=== PATIENT | female | born 1970 | race Caucasian/White ===

== ENCOUNTER → 2017-10-27 | Emergency (ER) | payer OTHER ==
[~2017-10-27] VITALS: Ht 157.5 cm; Wt 63.5 kg
[~2017-10-27] MED LIST: DULERA 200 MCG/13 GM IH; LEVAQUIN750 MG PO; MEDROLPACK PO; PROVENTIL S1 ML/5 MG IH; PROVENTIL0.5 ML/2.5 IH; PROVENTIL3 ML/2.5 M IH; SINGULAIR10 MG PO; SYNTHROID100 MCG; THEOPHYLLINE 200 MG; TUSSI-PRES LIQ118 ML PO; TUSSIONEX PENNKI5 ML PO; [UNRECOGNIZED DRUG - OTHER]
== END | disposition home or self-care (01) ==
LOC: ER 14:32
DX: K59.00 Constipation, unspecified (principal); R10.31 Right lower quadrant pain

== ENCOUNTER 2018-05-31 13:42 | Emergency (ER) | payer OTHER ==
[~2018-05-31] VITALS: Ht 157.5 cm; Wt 70.3 kg
[2018-05-31] MEDS ORDERED: CELEBREX100 MG PO (20:48)
== END 2018-05-31 21:12 ==
LOC: ER 13:42
DX: R10.2 Pelvic and perineal pain (principal)

== ENCOUNTER 2019-08-16 23:47 | Emergency (ER) | payer OTHER ==
[~2019-08-16] VITALS: Ht 157.5 cm; Wt 75.3 kg
[~2019-08-16 23:47] MED LIST changes: +CELEBREX100 MG PO
[2019-08-16] MEDS ORDERED: SYNTHROID112 MCG (23:58)
== END 2019-08-17 05:05 | disposition home or self-care (01) ==
LOC: ER 23:47
DX: J45.998 Other asthma (principal)

== ENCOUNTER 2022-08-28 08:46 | Emergency (ER) | payer OTHER ==
[~2022-08-28] VITALS: Ht 157.5 cm; Wt 88.9 kg
[~2022-08-28 08:46] MED LIST changes: +SYNTHROID112 MCG
[2022-08-28] MEDS ORDERED: PROVENTIL HFA6.7 GM (08:54)
[2022-08-28] MEDS ORDERED: BUDESONIDE0.5 MG/21 (08:54)
[2022-08-28] MEDS ORDERED: SYNTHROID150 MCG (08:54)
[2022-08-28] MEDS ORDERED: BENZONATATE200 M1 (08:54)
== END 2022-08-28 11:59 ==
LOC: ER 08:46
DX: J45.901 Unspecified asthma with (acute) exacerbation (principal); Z20.822 Contact with and (suspected) exposure to COVID-19

== ENCOUNTER 2025-08-02 23:26 | Emergency (ER) | payer OTHER ==
[~2025-08-02] VITALS: Ht 157.5 cm; Wt 75.3 kg
[~2025-08-02 23:26] MED LIST changes: +BENZONATATE200 M1; +BUDESONIDE0.5 MG/21; +PROVENTIL HFA6.7 GM; +SYNTHROID150 MCG
[2025-08-03 00:10] VITALS: BP 111/78; O2SAT 97
[2025-08-03] MEDS ORDERED: METHYLPREDNISOLONE SOD SUCC 125 MG VIAL IM STA (01:05)
[2025-08-03] MEDS ORDERED: CEFTRIAXONE SODIUM 1,000 MG VIAL IM STA (01:05)
[2025-08-03] MEDS ORDERED: CEFTRIAXONE SODIUM 1,000 MG VIAL ONE (02:11)
[2025-08-03] MEDS ORDERED: METHYLPREDNISOLONE SOD SUCC 125 MG VIAL ONE (02:11)
[2025-08-03] MEDS ORDERED: GUAIFENESIN/DEXTROMETHORPHAN 100MG/10ML BLIST.PACK PO STA (03:08)
[2025-08-03] MEDS ORDERED: ALBUTEROL SULFATE 3 ML/2.5 MG AMPUL.NEB IH SCH (03:15)
[2025-08-03] MEDS ORDERED: ALBUTEROL SULFATE 3 ML/2.5 MG AMPUL.NEB IH ONE (03:21)
[2025-08-03 03:25] LABS: BASO % 0.2 % (0.1-1.2); EOS # 0.00 (0.04-0.54); EOS % 0.0 % (0.7-7.0); LYMPH # 0.67 (1.18-3.74); LYMPH % 14.3 % (19.3-53.1); MEAN PLATELET VOLUME 9.60 fl (9.4-12.4); MONO # 0.46 (0.24-0.82); MONO % 9.8 % (4.7-12.5); NEUT # 3.55 (1.56-6.13); NEUT % 75.5 % (34.0-71.1); RED CELL DISTRIBUTION WIDTH 12.6 % (11.6-14.4)
[2025-08-03 03:32] LABS: BUN CREA RATIO 15.0 (7.0-25.0); CREATININE SERUM 0.86 mg/dL (0.55-1.02); GFR 68.76; GLUCOSE FASTING 123.0 mg/dL (65-100); OSMOLALITY SERUM 283.0 MOSM/KG (275-295)
[2025-08-03] MEDS ORDERED: GUAIFENESIN/DEXTROMETHORPHAN 100MG/10ML BLIST.PACK PO ONE (04:12)
[2025-08-03 04:17] LABS: URINE APPEARANCE Cloudy; URINE BILIRRUBIN Negative (NEGATIVE); URINE BLOOD Negative; URINE COLOR Yellow; URINE GLUCOSE Negative (NEGATIVE); URINE KETONE Trace (NEGATIVE); URINE LEUKOCYTE Trace; URINE NITRATE Negative; URINE PROTEIN Trace (NEGATIVE); URINE UROBILINOGEN 1.0 E.U./dl
[2025-08-03 04:22] LABS: URINE BACTERIA 12.5 uL (0.0-1933); URINE EPITHELIAL CELLS 6.5 uL (0.0-38.8); URINE RBC 7.9 uL (0.0-20.8); URINE WBC 2.9 uL (0.0-23.2)
[2025-08-03 04:24] LABS: URINE CAST 0.00 uL (0.0-1.40)
[2025-08-03 05:13] LABS: COVID-19 AG NEGATIVE (NEGATIVE)
== END 2025-08-03 05:21 | disposition home or self-care (01) ==
LOC: ER 23:26
PROVIDERS: General Practice
DX: J20.8 Acute bronchitis due to other specified organisms (principal); E03.8 Other specified hypothyroidism; Z98.84 Bariatric surgery status; J45.901 Unspecified asthma with (acute) exacerbation; Z20.822 Contact with and (suspected) exposure to COVID-19